=== PATIENT | male | born 1960 | race Caucasian/White ===

== ENCOUNTER → 2017-04-25 | Day surgery (SDC) | payer OTHER ==
[~2017-04-25] MED LIST: ATORVASTATIN CA20 MG PO; CATAPRES 0.1MG0.1 MG PO; FISH OIL CONC1000 MG PO; FOLIC ACID1 MG PO; HEARTBURN RELI150 M1 PO; METOPROLOL SUCC25 MG PO; QUETIAPINE FUM400 MG PO; VENLAFAXINE HC150 MG PO; VISTARIL25 MG PO; VITAMIN B-1100 M1 PO; VITAMIN B12-FO1 EACH PO
== END | disposition home or self-care (01) ==
LOC: OR 06:49
PROVIDERS: Internal Medicine Gastroenterology
PROC: 0DBN8ZZ Excision of Sigmoid Colon, Via Natural or Artificial Opening Endoscopic (ICD-10-PCS; principal; 2017-04-25 10:15)
DX: Z12.11 Encounter for screening for malignant neoplasm of colon (principal); D12.7 Benign neoplasm of rectosigmoid junction; K64.0 First degree hemorrhoids; I10 Essential (primary) hypertension; Z86.19 Personal history of other infectious and parasitic diseases; Z82.49 Family history of ischemic heart disease and other diseases of the circulatory system; Z88.7 Allergy status to serum and vaccine; Z79.899 Other long term (current) drug therapy
CPT/HCPCS: J2250; J7030